=== PATIENT | female | born 1955 | race Caucasian/White ===

== ENCOUNTER → 2019-10-15 15:20 | Outpatient (CLI) | payer OTHER, SELFPAY ==
[2019-10-16 11:06] LABS: COVID19 Sendout Not Detected (Not Detect)
== END ==
PROVIDERS: Visit Provider Nurse Practitioner
DX: Z11.59 Encounter for screening for other viral diseases (principal)
CPT/HCPCS: 87635

== ENCOUNTER 2019-10-18 10:16 | Day surgery (SDC) | payer OTHER, SELFPAY ==
[2019-10-12 10:58] VITALS: BMI 25.0
[2019-10-18] VITALS (14 sets, daily range): BP systolic 75–124; BP diastolic 52–77; PULSE 60–73; RESP 10–16; TEMP 36–36.4; O2SAT 95–100; BMI 23.8
--- NOTE | 2019-10-18 08:00 | DI.RAD.S_ITS ---
PROCEDURE: XR PELVIS 1-2V INDICATIONS: total left hip TECHNIQUE: 1 view of the lower pelvis acquired. COMPARISON: None. FINDINGS: Bones: Patient is status post left hip arthroplasty, with hardware components in expected positions. The hip joint appears congruent. The visualized bony structures appear intact. Soft tissues: Overlying postoperative changes are noted. No suspicious soft tissue densities. IMPRESSION: Normal alignment after left total hip arthroplasty. Dictated by: Rohit Reddy M.D. on 10/18/2019 at 14:46 Approved by: Rohit Reddy M.D. on 10/18/2019 at 14:46
[2019-10-18] MEDS: ACETAMINOPHEN 325 MG TABLET 975 MG PO (10:54)
[2019-10-18] MEDS: CELECOXIB 200 MG CAPSULE PO (10:54)
[2019-10-18] MEDS: LACTATED RINGERS 1,000 ML 42 ML IV ×2 (10:56→12:49)
--- NOTE | 2019-10-18 11:40 | PM.PREOP ---
Pre-operative Note COVID-19 COVID-19 status: Negative Result date/Date tested (Pos, Neg/Pending): 10/16/19 Interval Note History & Physical reviewed/Exam performed by Physician: Yes Changes to H&P: No
[2019-10-18] MEDS: CEFAZOLIN 2 GM/100 ML FROZ.PIGGY IV ×2 (11:47→21:00)
[2019-10-18] MEDS: TRANEXAMIC ACID 1,000 MG VIAL 1000 MG INJ ×2 (12:16→13:08)
--- NOTE | 2019-10-18 12:26 | SUR.OPER ---
Lateral on padded OR bed. Gel axillary roll. Arms secured on padded armboard with pillow supporting top arm. Padded hip positioner braces x4 - anterior and posterior chest and pelvis. Additional gel pad used anterior pelvis. Gel pad under bottom leg from knee to foot and secured with tape over sheet.
[2019-10-18] MEDS: KETOROLAC 30 MG/ML VIAL IV (12:30)
[2019-10-18] MEDS: ROPIVACAINE 0.5% PF 5 MG/ML 20ML VIAL 60 ML INJ (12:30)
[2019-10-18] MEDS: MORPHINE 4 MG/ML INJ INJ (12:31)
--- NOTE | 2019-10-18 13:28 | PM.OP.1 ---
Operative Date/Time/Diagnoses Date of procedure: 10/18/19 Time of procedure: 13:28 Pre-op diagnosis: Left hip degenerative joint disease Post-op diagnosis: same Procedure & Clinicians Procedure: Left total hip arthroplasty (CPT code 32511 with senior office support assistant sosa) Same procedure as scheduled: Yes Indications: Patient is an 64-year-old female with severe left hip DJD. The patient has pain with activities and at rest, limited ambulation and activity tolerance, difficulties with ADLs, and failure of conservative treatment. We have discussed the nature of condition, treatment options, risks and benefits, and patient elects to proceed with total hip arthroplasty and gives informed consent. Surgeon: Tao Cheng Corporate Claims Examiner: Andrew Barnes Anesthesia Type: Spinal Operative Notes Closure Type: primary Specimen(s): none sent Prosthetic devices, grafts, tissues, transplants, or devices: Acetabulum: Hall and Nephew R3 acetabular component size 50 mm Femoral component: Hall and Nephew Anthology stem size 7 with standard offset Femoral head: 32 mm + 4 Oxinium Estimated Blood Loss (mL): 150 Blood products transfused: none Procedure in detail: After satisfaction induction of anesthetic, and administration of IV antibiotics, the patient was positioned in the lateral decubitus position with all bony prominences well padded and pelvic position secured using a hip platform attendant positioning device. Left hip and lower extremity prepped and draped in the usual sterile fashion, 1st dose of intravenous tranexamic acid was administered, then a longitudinal incision was created centered over the greater trochanter and carried sharply through the skin and subcutaneous tissues down to the fascia abdirashid which was divided longitudinally and retracted with a Charnley retractor. External rotators visualize, cut, tagged, and retracted posteriorly, then the capsule was cut in a T-type fashion with the corners tagged and retracted. Hip was dislocated and femoral neck cut made according to preoperative templating. Acetabular retractors then placed, and the acetabular labrum and osteophytes were excised. The acetabulum was then sequentially reamed to 49 mm with an excellent circumferential ream and fit with the trial. The trial component was removed and a permanent size 50 mm Hall and Nephew R3 acetabular component was selected, positioned, and impacted with satisfactory position and fixation achieved. Permanent liner was then inserted with the elevated lip directed posteriorly. Soft tissue then removed off the lateral femoral neck in the lateral neck was entered using a box osteotome. T-handled reamers placed down the canal followed by sequential broaching to 7 with the final broach left in place for trial reduction which demonstrated good leg length, range of motion, and stability characteristics with a 32 mm +0 trial ball. Another trial was done with a 32 mm +4 ball which yielded excellent leg length and excellent stability. The trial and broach were removed, and a permanent size 7 Hall and Nephew Anthology stem was selected and inserted with excellent position and fixation achieved. Another trial reduction yielded the above characteristics so the trial ball was exchanged for a permanent 32 mm + 4 Oxinium ball. The hip was irrigated and reduced and excellent leg length range of motion and stability characteristics were achieved and maintained. Periarticular tissues were infiltrated with ropivacaine, morphine, and Toradol. The hip was copiously irrigated, and the capsule repaired with #2 Ethibond, and the piriformis was repaired back to the greater trochanter with the same. Fascia abdirashid closed with interrupted #1 Ethibond sutures, and the subcutaneous tissues were closed in 2 layers of 0 Vicryl and 2 0 Vicryl. Skin was closed with harley and sterile dressings applied. Second dose of tranexamic acid was administered intravenously, and the anesthetic was terminated. Complications: none Post-operative Condition: stable Disposition: PACU Plan for aftercare: Patient will be admitted to the acute care [facility], and anticipate discharge on postop day 1 with follow-up in office in 10-14 days. Outpatient physical therapy will be arranged and patient will continue to observe posterior hip precautions. Patient will continue use of postoperative aspirin for DVT prophylaxis.
--- NOTE | 2019-10-18 13:38 | SUR.PHASEI ---
1333 Upon arrival to PACU, Bp noted to be 75/52 with a MAP of 60. Anesthesia aware and unconcerned. IV fluids infusing without difficulty wide open. Patient is asymptomatic. Skin is pink, warm and dry. NSR with a rate of 76 and no ectopy.
--- NOTE | 2019-10-18 13:40 | SUR.PHASEI ---
BP increasing to 86/59 with a MAP of 66.
[2019-10-18] MEDS: LACTATED RINGERS 1,000 ML 125 ML IV ×2 (14:34→23:15)
[2019-10-18] MEDS: ACETAMINOPHEN 325 MG TABLET 650 MG PO ×2 (14:37→20:58)
[2019-10-18] MEDS: ONDANSETRON 4 MG/2 ML INJ IV (15:01)
--- NOTE | 2019-10-18 15:44 | PT-IP ANOTE ---
PT order received. Pt arrived AC unit at 1410. Attempted to eval pt and pt's surgical L LE was still numb and weak. Provided post op booklet and reviewed post op precautions with her. Pt showed good understanding. Will reattempt PT tomorrow morning.
[2019-10-18] MEDS: ASPIRIN EC 81 MG TABLET PO (20:59)
[2019-10-18] MEDS: DOCUSATE 100 MG CAPSULE PO (20:59)
[2019-10-19 00:21] VITALS: BP 121/68; PULSE 67; RESP 16; TEMP 36.6; O2SAT 98
--- NOTE | 2019-10-19 01:29 | PC.NURSE ---
Addendum entered by Fior Yang R.N. 10/19/19 04:58: Complained of 3/10 pain earlier but did not want to take any narcotics so given the morning dose of Tylenol. Pain currently down to 2/10 Original Note: Patient seen and assessed at 0004. Is alert and oriented. Breath sounds CTA with RA sat of 98%. HRR. Denies nausea. BT present and is passing flatus. Denies dysuria, frequency or urgency with urination. Able to move herself in bed. Gait not assessed as not out of bed yet this shift but evening RN reports patient required 2 assist + walker to get up to BSC. Bulky dressing to left hip is CDI. CMS is intact. Wearing bilateral calf SCD's. Denies pain. Fall risk score is moderate and bed alarm is activated.
[2019-10-19] MEDS: CEFAZOLIN 2 GM/100 ML FROZ.PIGGY IV (03:58)
[2019-10-19] MEDS: ACETAMINOPHEN 325 MG TABLET 650 MG PO (04:03)
[2019-10-19 04:10] VITALS: BP 129/73; PULSE 72; RESP 18; TEMP 36.4; O2SAT 98
[2019-10-19 05:51] LABS: Hematocrit 31.2 % (36-46); Hemoglobin 10.7 g/dL (12.0-16.0)
[2019-10-19 07:15] VITALS: BP 128/79; PULSE 66; RESP 18; TEMP 36.9; O2SAT 98
[2019-10-19] MEDS: DOCUSATE 100 MG CAPSULE PO (08:17)
[2019-10-19] MEDS: ASPIRIN EC 81 MG TABLET PO (08:17)
[2019-10-19] MEDS: IBUPROFEN 600 MG TABLET PO (08:17)
--- NOTE | 2019-10-19 09:08 | CM.DANOTE ---
Addendum entered by Amparo Pederson LPN 10/19/19 11:40: A check in now shows that pt did well with PT and was d/c'd to home setting accompanied by friend Katey. Addendum entered by Amparo Pederson LPN 10/19/19 09:28: correction: pt is a 64 year old female Met with pt and introduced self and role. Pt was in middle of PT session so conversation brief. Pt stated she lives with her sister Laila who will be providing supportive care when she goes home. Will be following. Original Note: Discharge Planning/Care Management DCP: assessment: case received, EMR reviewed. DC order is noted by Dr. Cheng but no physician note yet for today. Pt has not yet been up with PT. Pt is a 64 year old male who admitted yesterday for a plannedL ULYSSES. Surgeon: Dr. Cheng Payer: Martinez Mondragon PT did attempt to see pt yesterday post surgery but he reported that pt's leg was still too numb and weak to do the eval. Eval will be this morning. P: Check in with pt and follow for d/c issues and options. CM Discharge Assessment Start: 10/19/19 09:07 Freq: Status: Active Protocol: Document 10/19/19 09:07 ITV (Rec: 10/19/19 09:08 IT [id number]) Discharge Planning Assessment Advance Directives? No: does not have or want Advance Directives on File No History Provided By Medical Record Prior Living Arrangements House Household Members family Is patient alert and oriented? Yes Review Status In Process Pre-Anesthesia Assessment Start: 10/12/19 10:58 Freq: Status: Complete Protocol: Document 10/12/19 10:58 CAB (Rec: 10/12/19 11:23 CAB [id number]) Pre-Anesthesia Assessment Patient Information Reviewed Via Phone Assessment Assessment Completed With Patient Comment COVID screen @ 10/15/19 Primary Care Provider None Seen Specialist in Last 12 Months Yes Specialist Seen Orthopedist Primary Language Turkish Quality Control Auditor Required No Height 177.8 cm Weight 78.925 kg Body Mass Index (BMI) 25.0 Hearing Ability Normal Visual Assist Magnifying Glass Dentition Type Teeth, Natural Present Barriers to Learning None Hx Anesthesia Reactions No Hx Family Anesthesia Reaction No Hx Malignant Hyperthermia No Hx Blood Transfusions No Anesthesia Review Requested No alcohol intake never Smoking Status Never smoker Substance Use Type marijuana Comment Pt advised not to smoke marijuana 24 hours prior to surgery Pain Present Pain Reported Musculoskeletal Symptoms Abnormal Gait,Difficulty Walking,Joint Pain History of Falling (Recent or History of No ) Patient is completely paralyzed or No completely immobile Prosthesis or Orthotic Device Cane Mental Status Oriented to own ability Is patient on oxygen? No Does patient have GAMING/SOB No Hx Sleep Apnea No Currently Taking a Beta Dc No Can You Climb a Flight of Stairs Without Yes SOB Hx Chest Pain No Hx SOB No Hx Syncope or Dizziness No Anti-Coagulant Therapy No Has a What Job Titles Mean No Cardiac Testing No Hx Pacemaker/ICD No Pacemaker Rep Required? No Cardiac Clearance Received Not Applicable Diet Type At Home Regular dysphagia No Urinary Catheter Present No Hx Urinary Self Catheterization No Diabetes No Patient No Lactating No Hx Drug Resistant Organism No Presence of External or Internal Medical No Devices Have you had any close contact with No someone diagnosed with COVID-19? Marital Status Single Lives With family Prior Living Arrangements House Number of Floors (Floors) One Floor Support System Friend(s),Sibling(s) Does the Patient Have Assistance After Yes Surgery Patient Discharge Plan Description Return Home Comment Pt not advised on length of stay per surgeon Feels Safe in Current Environment Yes Been Physically Hurt or Threatened By a No Person in Current Environment Do you have thoughts of harming yourself None or others? Are you currently considering suicide? No Do you have a plan to hurt yourself or No Plan others? Do You Have Any Spiritual Beliefs That No May Affect Your HC Choices? Do You Have Any Cultural Practices That No May Affect Your HC Choices? Comment Alonso Who Can We Speak to About Patient's Care Family, friends Identifying Code for Release of Patient Declines to issue Information Health Care Proxy/Next of Kin Laila (sister) Health Care Proxy Phone Number Pt to update dos Emergency Contact Name Laila (sister) Emergency Contact Phone Number Pt to update dos Advance Directives? No Power of Childhood Development Teacher No PAC Instructions Do not shave/clip surgical site,Durable medical equipment ,Medications to take/avoid, Nasal antibiotic,No ETOH/ petroleum product on skin DOS, NPO,Post-op transportation,Pre -surgical wash,Sturdy shoes/ comfortable clothes,Do not bring valuables and remove jewelry
--- NOTE | 2019-10-19 10:00 | PT.IIE ---
Current Diagnoses Unilateral primary osteoarthritis, left hip (10/18/19) Surgery Performed Operation Date: 10/18/19 11:45 Actual Procedures p Total Hip Arthroplasty(Left) - Tao Cheng MD Surgical History (Last Updated 10/12/19 @ 11:07 by Sravanthi Huynh RN) [place] teeth removed (Acute 1976) Medical History (Last Updated 10/12/19 @ 11:07 by Sravanthi Huynh RN) Anxiety (Acute) Physical Therapy Inpatient Evaluation/Re-Eval M1 PT/OT-IP Prior Functional Status Start: 10/19/19 08:34 Freq: NEEDED Status: Discharge Protocol: Document 10/19/19 09:41 AW (Rec: 10/19/19 12:07 AW [email or web address]) Medical Review Prior Functional Status Medical History Reviewed Yes Communication WNL. No known deficits. Mobility and Gait Independent ambulation up to one block distance. 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 At the end of a long day, she will occasionally use a cane due to fatigue and increased pain. Activities of Daily Living and IADL's Independent Social History Household Members family Living Arrangements House Number of Floors (Floors) One Floor Number of Stairs To Enter/Railing? 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 She lives with her sister, Laila, who will be available to assist at home as needed. M2 PT-IP Current Condition Start: 10/19/19 08:34 Freq: NEEDED Status: Discharge Protocol: Document 10/19/19 09:41 AW (Rec: 10/19/19 12:07 AW [email or web address]) Physical Therapy Current Condition Current Condition Evaluation Date 10/19/19 Treatment Diagnosis L ULYSSES with posterior approach; difficulty in walking Onset Date 10/18/19 Precautions Posterior Hip Precautions No Hip Flexion > 90 degrees,No Hip Internal Rotation,No Hip Adduction Weight Bearing Status Weight Bearing Status Weight Bear as Tolerated M3 PT-IP Subjective Start: 10/19/19 08:34 Freq: NEEDED Status: Discharge Protocol: Document 10/19/19 09:41 AW (Rec: 10/19/19 12:07 AW [email or web address]) Subjective Physical Therapy Visit Type Type Initial Evaluation Visit Start Time 09:08 Visit Stop Time 09:41 Total Visit Minutes 33 Physical Therapy Visit Comments Patient Comments Pt expresses some fear of mobilizing but is willing to participate. Patient Goals To go home with family support Therapy Pain Assessment Pain When Pain Assessed During Mobility Pain Present Pain Present Pain Reported Location Left Hip Intensity 2 Pain Management Techniques Apply Cold,Timing of Activity with Medications M4 PT-IP Mobility and Gait Start: 10/19/19 08:34 Freq: NEEDED Status: Discharge Protocol: Document 10/19/19 09:41 AW (Rec: 10/19/19 12:07 AW [email or web address]) PT-Bed Mobility Assessment Supine to Sit Supine to Sit Minimal Assistance,1 Person Assistance Scooting Scooting to Edge of Bed Standby Assistance PT-Transfer Assessment Sit to and From Stand Sit to and from Stand Standby Assistance,Use of Upper Extremities Equipment Transfer Assistive Device Gait Belt,Front Wheeled Walker Transfers Transfer Destination Chair Transfer Technique pt ambulated with FWW Transfer Ability Level of Assist Standby Assistance,Use of Upper Extremities Comments Mobility Comments With HOB flat, pt completed bed supine to long sitting and then used her BUE to move her left leg toward the right side of the bed. Pt required cues to avoid excessive hip flexion and min assist to move her operative leg. She then scooted toward EOB SBA and was able to sit without UE support during assessment. She completed sit to stand from the bed in lowest position SBA and proceeded to ambulate in the halls with FWW SBA. She ambulated a total of 300 feet. This feels a lot better than I thought it would. On return to the room, pt transferred to the chair SBA with cues for left foot placement in order to maintain hip precautions. She stood and sat again for practice without need for cues. Pt was positioned on the chair with call light and all needs in reach. Gait Assessment Gait Gait Assistance Required: Standby Assistance Distance (Feet) 300 Able to Maintain Weight Bearing Status Yes During Gait Assistive Devices Assistive Device Gait Belt,Front Wheeled Walker Orthotic/Prosthetic Devices or Brace: No Gait Deviations General Gait Pattern Antalgic,Decreased Stride Length,Decreased Feet Clearance,Step-to Gait Factors Limiting Gait Function Factors Limiting Gait Function Decreased Activity Tolerance, Decreased Strength,Limited Range of Motion,Pain,Poor Balance Comments Gait Comments Pt ambulated with circumduction of the LLE. When cued for heelstrike at initial contact, she was able to improve knee flexion in swing and reduce circumduction . Stair Climbing Assessment Comments Stair Climbing Comments Not assessed. No stairs at home. PT-Balance Assessment Sitting Balance and Reactions Static Sitting Balance Ability Normal Dynamic Sitting Balance Ability Normal Standing Balance and Reactions Static Standing Balance Ability Good Dynamic Standing Balance Ability Good Device Used FWW M5 PT-IP Objective Assessments Start: 10/19/19 08:34 Freq: NEEDED Status: Discharge Protocol: Document 10/19/19 09:41 AW (Rec: 10/19/19 12:07 AW [email or web address]) Orientation Orientation/Cognition Level of Alertness Alert Orientation Name,Day of Week,Place, Situation Language Function Ability No Deficits Noted Safety Awareness Understands Safety Issues Memory Description No Deficits Noted Gross Range of Motion Upper Extremity ROM Assessment Within Functional Limits Lower Extremity ROM Assessment Left Impaired Strength Upper Extremity Strength Assessment Within Functional Limits Lower Extremity Strength Assessment Left Impaired Comments Strength Comments RLE grossly 5/5 Coordination Assessment Gross Coordination Gross Coordination WNL Sensation Assessment Sensation Gross Sensation WNL Muscle Tone Muscle Tone WNL Yes M6 PT-IP Treatment Start: 10/19/19 08:34 Freq: NEEDED Status: Discharge Protocol: Document 10/19/19 09:41 AW (Rec: 10/19/19 12:07 AW [email or web address]) Physical Therapy Treatment Exercises Exercises Ankle Pumps,Gluteal Sets,Quad Sets,Heel Slides Education Education Provided Precautions,Weight Bearing Status,Post-Op Packet,Safety Other Treatments Other Treatment Performed Provided education on role of PT, plan of care, weightbearing status, and safe use of FWW. M7 PT-IP Assessment and Plan Start: 10/19/19 08:34 Freq: NEEDED Status: Discharge Protocol: Document 10/19/19 09:41 AW (Rec: 10/19/19 12:07 AW [email or web address]) PT Summary Assessment and Plan Potential Rehabilitation Potential Excellent Status of Condition at Evaluation Stable Summary Impairments Pain,ROM,Strength,Balance,Bed Mobility,Transfers,Gait, Activity Tolerance Assessment Summary Chanelle is a 64 yo woman seen for PT evaluation on POD1 following L ULYSSES with posterior approach. She is independent in all regards at baseline. She lives with her sister who will be available and able to assist as needed at discharge. Pt required min assist with bed mobility, and SBA for all transfers and ambulation with FWW. She demonstrated good awareness of posterior hip precautions. Pt is safe to discharge home with outpatient PT once medically cleared. Frequency of Treatment Frequency Of Treatment Discharge Recommendations To Nursing Amount of Assist Needed Standby Assistance Discharge Recommendations PT Discharge Recommendations Home with Assistance, Outpatient PT Transportation Needs at Discharge Private Vehicle
--- NOTE | 2019-10-19 10:02 | PC.NURSE ---
Pt is getting dressed with assistance from her friend Katey who will be helping her at home. Dsg to left hip changed to Coversite. Incision is clean and harley are intact and without drainage. IV has been removed.
--- NOTE | 2019-10-19 10:29 | PC.NURSE ---
Nurse reviewed discharge instructions with pt and friend, Katey, reviewed stroke precautions, hard copy medications given to fill at pharmacy, pt reminded of post op precautions, no lifting, no driving on narcotics, reminded to take stool softeners and drink plenty of fluids to prevent constipations, pt agreeable, pt has all her belongings and dressed, pt in wheel chair and wheeled by SOCK LINING STITCHER to entrance to meet friend Katey for ride home.
== END 2019-10-19 10:33 | disposition home or self-care (01) ==
LOC: OR 10:20 → AC 10:21
PROVIDERS: Referring Provider Orthopaedic Surgery; Visit Provider Orthopaedic Surgery
PROC: 0SRB0JZ Replacement of Left Hip Joint with Synthetic Substitute, Open Approach (ICD-10-PCS; CPT 27130; principal; 2019-10-18 11:45)
DX: M16.12 Unilateral primary osteoarthritis, left hip (principal)
CPT/HCPCS: 27130; 36415; 36592; 72170; 85014; 85018; 94762; 97116; 97161; C1776; J0690; J1885; J2250; J2270; J2405; J3010